=== PATIENT | male | born 1960 | race African-American/Black ===

== ENCOUNTER 2016-12-27 14:04 | Emergency (ER) | payer OTHER ==
[~2016-12-27] VITALS: Ht 167.6 cm; Wt 102.5 kg
--- NOTE | ~2016-12-27 | CR181 ---
[facility] A Service of [facility] & [facility] RADIOLOGY TEXT RESULTS PATIENT: MAYKEL RICHTER LOCATION: [place] : [birth year] UNIT #: [id number] AGE: [address]: Nikki Resendiz SEX: M ORDER DR: [id number] [facility] [address] [place], [place] [address] [id number] E MR#: [id number] Acc #: [id number] NAME: MAYKEL RICHTER : 1960 SEX: M STUDY DATE/TIME: 12/27/2016 16:56 UNIT: [facility] ROOM: STUDY DESCRIPTION: CR Lumbar Spine 2 or 3 Views Attending Physician: Nikki Resendiz Pa-C Ordering Physician: Nikki Resendiz Pa-C Primary Care Physician: Tavo Lyons Sr., M.D. MEDICAL IMAGING REPORT This report is preliminary unless electronic signature is present EXAM Lumbar spine 3 views INDICATION Low back pain today after bending over. COMPARISON No comparisons. FINDINGS Vertebral heights and alignment are maintained. Mild disc space narrowing at L2-3 and L3-4. IMPRESSION Mild disc space narrowing as described. No acute findings. Dictated by... Hever Merchant M.D. THIS IS AN ELECTRONICALLY VERIFIED REPORT Hever Merchant M.D. at 12/29/2016 7:15 AM Minnie TD: 12/28/2016 08:35 JOB #: [id number] MEDICAL IMAGING REPORT Page 1 of 1 COPY
[~2016-12-27 14:04] MED LIST: AMLODIPINE BESY10 MG PO; CIPRO250 MG PO; LOTENSIN20 MG PO; RISPERDAL3 MG PO
== END 2016-12-27 17:46 | disposition home or self-care (01) ==
LOC: CED 14:04 → CFTX 14:04
DX: S39.012A Strain of muscle, fascia and tendon of lower back, initial encounter (principal); E10.8 Type 1 diabetes mellitus with unspecified complications; Z79.4 Long term (current) use of insulin; I10 Essential (primary) hypertension; X50.0XXA Overexertion from strenuous movement or load, initial encounter
CPT/HCPCS: 72100; 99283